=== PATIENT | female | born 1935 | race Caucasian/White ===

== ENCOUNTER → 2017-11-15 | Outpatient (CLI) | payer MEDICARE, BC | END | disposition home or self-care (01) | LOC: CFH 12:56 | PROVIDERS: ATTEND Specialist | DX: M81.0 Age-related osteoporosis without current pathological fracture (principal) | CPT/HCPCS: 77080 ==

== ENCOUNTER 2018-05-26 17:52 | Inpatient (IN) | payer MEDICARE, BC ==
[~2018-05-26] VITALS: Ht 167.6 cm; Wt 58.7 kg
[2018-05-26] MEDS ORDERED: [UNRECOGNIZED DRUG - REMARK] NAS (18:51)
[2018-05-26] MEDS ORDERED: COUMADIN (18:51)
[2018-05-26] MEDS ORDERED: DIGOXIN PO (18:51)
[2018-05-26] MEDS ORDERED: ASPI81TA45 PO (18:51)
[2018-05-26] MEDS ORDERED: [UNRECOGNIZED DRUG - REMARK] PO (18:51)
[2018-05-26] MEDS ORDERED: EFFEXOR PO (18:51)
[2018-05-26] MEDS ORDERED: BP MED? (18:51)
[2018-05-26] MEDS ORDERED: CARISOPRODOL PO (18:51)
[2018-05-26] MEDS ORDERED: MECLIZINE CHEWABLE 25 MG TAB PO ONE (19:00)
[2018-05-26] MEDS ORDERED: MECLIZINE CHEWABLE 25 MG TAB ONE (19:17)
[2018-05-26 19:18] LABS: BASOPHILS # (AUTO) 0.06 x10^3/uL (0-0.1); BASOPHILS % (AUTO) 1 % (0-1); EOSINOPHILS # (AUTO) 0.36 x10^3/uL (0-0.4); EOSINOPHILS % (AUTO) 4 % (1-7); LYMPHOCYTES # (AUTO) 1.84 x10^3/uL (1-3.4); LYMPHOCYTES % (AUTO) 20 % (22-44); MD NO; MEAN CORPUSCULAR HEMOGLOBIN 30.4 pg (27.0-34.8); MEAN CORPUSCULAR HGB CONC 33.8 g/dL (32.4-35.8); MEAN CORPUSCULAR VOLUME 89.9 fL (80-100); MEAN PLATELET VOLUME 8.2 fL (7.4-10.4); MONOCYTES # (AUTO) 0.73 x10^3/uL (0.2-0.8); MONOCYTES % (AUTO) 8 % (2-9); NEUTROPHILS # (AUTO) 6.15 x10^3/uL (1.8-6.8); NEUTROPHILS % (AUTO) 67 % (42-75); PLATELET COUNT 234 x10^3/uL (130-400); RED BLOOD COUNT 4.42 x10^6/uL (3.82-5.3); RED CELL DISTRIBUTION WIDTH 14.8 % (9.6-15.2)
[2018-05-26 19:28] LABS: INTERNATIONAL NORMALIZED RATIO 1.7 (0.93-1.1); PROTHROMBIN TIME 17.7 Seconds (9.6-11.5)
[2018-05-26 19:29] LABS: ALBUMIN 3.5 g/dL (3.4-5.0); ANION GAP 1 mmol/L (5-15); CHLORIDE 105 mmol/L (98-107)
[2018-05-26 19:34] LABS: ALANINE AMINOTRANSFERASE 26 U/L (12-78); ALKALINE PHOSPHATASE 96 U/L (45-117); BILIRUBIN,TOTAL 0.7 mg/dL (0.2-1.0); CREATININE 1.11 mg/dL (0.55-1.02); TOTAL PROTEIN 6.9 g/dL (6.4-8.2); TROPONIN I < 0.015 ng/mL (0.000-0.045)
[2018-05-26] MEDS ORDERED: BISACODYL 10 MG SUPP PR PRN (21:00)
[2018-05-26] MEDS ORDERED: DIAZEPAM 5 MG TABLET PO PRN (21:00)
[2018-05-26] MEDS ORDERED: MECLIZINE CHEWABLE 25 MG TAB PO PRN (21:00)
[2018-05-26] MEDS ORDERED: SODIUM CHLORIDE FLUSH 10ML SYR IVF PRN (21:00)
[2018-05-26] MEDS ORDERED: ONDANSETRON ODT 4 MG PO PRN (21:00)
[2018-05-26] MEDS ORDERED: hydrALAzine 20 MG/ML, 1ML IVPush PRN (21:00)
[2018-05-26] MEDS ORDERED: POLYETHYLENE GLYCOL 17 GM PACKET PO PRN (21:00)
[2018-05-26] MEDS: SODIUM CHLORIDE FLUSH 10ML SYR IVF SCH (21:45)
[2018-05-26 21:50] VITALS: BP 169/76
[2018-05-27] VITALS (7 sets, daily range): BP systolic 128–173; BP diastolic 67–95
[2018-05-27 05:43] LABS: BASOPHILS # (AUTO) 0.04 x10^3/uL (0-0.1); BASOPHILS % (AUTO) 1 % (0-1); EOSINOPHILS # (AUTO) 0.34 x10^3/uL (0-0.4); EOSINOPHILS % (AUTO) 4 % (1-7); LYMPHOCYTES # (AUTO) 2.37 x10^3/uL (1-3.4); LYMPHOCYTES % (AUTO) 27 % (22-44); MD NO; MEAN CORPUSCULAR HEMOGLOBIN 30.5 pg (27.0-34.8); MEAN CORPUSCULAR HGB CONC 34.2 g/dL (32.4-35.8); MEAN CORPUSCULAR VOLUME 89.2 fL (80-100); MEAN PLATELET VOLUME 8.7 fL (7.4-10.4); MONOCYTES # (AUTO) 0.75 x10^3/uL (0.2-0.8); MONOCYTES % (AUTO) 9 % (2-9); NEUTROPHILS # (AUTO) 5.38 x10^3/uL (1.8-6.8); NEUTROPHILS % (AUTO) 61 % (42-75); PLATELET COUNT 208 x10^3/uL (130-400); RED BLOOD COUNT 4.13 x10^6/uL (3.82-5.3); RED CELL DISTRIBUTION WIDTH 14.8 % (9.6-15.2)
[2018-05-27 05:53] LABS: ALBUMIN 3.4 g/dL (3.4-5.0); CALCIUM 8.1 mg/dL (8.5-10.1); CHLORIDE 105 mmol/L (98-107)
[2018-05-27 05:56] LABS: INTERNATIONAL NORMALIZED RATIO 1.63 (0.93-1.1)
[2018-05-27 05:58] LABS: ALANINE AMINOTRANSFERASE 23 U/L (12-78); ALKALINE PHOSPHATASE 93 U/L (45-117); ANION GAP 6 mmol/L (5-15); BILIRUBIN,TOTAL 0.6 mg/dL (0.2-1.0); CREATININE 0.97 mg/dL (0.55-1.02); TOTAL PROTEIN 6.3 g/dL (6.4-8.2)
[2018-05-27 07:37] LABS: MICROSCOPIC AUTO
[2018-05-27 07:40] LABS: CULTURE INDICATED? YES
[2018-05-27] MEDS: SENNA/DOCUSATE TABLET PO SCH (09:00)
[2018-05-27] MEDS ORDERED: SODIUM CHLORIDE 0.9% 1,000 ML IV SCH (09:30)
[2018-05-27] MEDS ORDERED: POTASSIUM CHLORIDE 20 MEQ TAB.ER.PRT PO ONE (09:30)
[2018-05-27] MEDS: SODIUM CHLORIDE FLUSH 10ML SYR IVF SCH ×2 (10:17→21:18)
[2018-05-27] MEDS: ASPIRIN 81 MG TABLET EC PO SCH (10:17)
[2018-05-27] MEDS ORDERED: TRAM50TA2 PO (14:00)
[2018-05-27] MEDS ORDERED: ASPI81TA59 PO (14:00)
[2018-05-27] MEDS ORDERED: TRIA50CA PO (14:00)
[2018-05-27] MEDS ORDERED: WARF4TAB PO (14:00)
[2018-05-27] MEDS ORDERED: OMEP40CA6 PO (14:00)
[2018-05-27] MEDS ORDERED: DIGO125T10 PO (14:00)
[2018-05-27] MEDS ORDERED: VENL37.57 PO (14:00)
[2018-05-27] MEDS ORDERED: ATOR40TA78 PO (14:00)
[2018-05-27] MEDS ORDERED: POTA20TA89 PO (14:00)
[2018-05-27] MEDS ORDERED: CARI350T14 PO (14:00)
[2018-05-27] MEDS ORDERED: TIZA2TAB PO (14:00)
[2018-05-27] MEDS: GABAPENTIN 100 MG CAPSULE PO SCH (21:17)
[2018-05-27] MEDS: DIPHENHYDRAMINE 50 MG/ML, 1ML IVPush PRN (21:18)
[2018-05-28] VITALS (9 sets, daily range): BP systolic 130–187; BP diastolic 67–95
[2018-05-28] MEDS: SODIUM CHLORIDE 0.9% 1,000 ML IV SCH ×2 (01:00→10:30)
[2018-05-28] MEDS: GABAPENTIN 100 MG CAPSULE PO SCH ×4 (06:09→21:45)
[2018-05-28] MEDS: SENNA/DOCUSATE TABLET PO SCH (09:00)
[2018-05-28] MEDS: SODIUM CHLORIDE FLUSH 10ML SYR IVF SCH ×2 (09:00→21:45)
[2018-05-28] MEDS ORDERED: SODIUM CHLORIDE 0.9% 1,000 ML IV SCH (09:30)
[2018-05-28 09:40] LABS: ANION GAP 8 mmol/L (5-15); CALCIUM 8.3 mg/dL (8.5-10.1); CHLORIDE 111 mmol/L (98-107); CREATININE 0.96 mg/dL (0.55-1.02)
[2018-05-28] MEDS: ASPIRIN 81 MG TABLET EC PO SCH (10:30)
[2018-05-28] MEDS ORDERED: POTASSIUM CHLORIDE 20 MEQ TAB.ER.PRT PO ONE (13:30)
[2018-05-28] MEDS ORDERED: METHOCARBAMOL 500 MG TABLET PO PRN (19:30)
[2018-05-28] MEDS ORDERED: WARFARIN 5 MG TABLET PO-COUM ONE (20:00)
[2018-05-28] MEDS: VENLAFAXINE 37.5MG TABLET PO SCH (21:44)
[2018-05-28] MEDS: ATORVASTATIN 40 MG TABLET PO SCH (21:44)
[2018-05-28] MEDS: OMEPRAZOLE 20 MG CAPSULE.DR PO SCH (21:45)
[2018-05-28] MEDS: DIPHENHYDRAMINE 50 MG/ML, 1ML IVPush PRN (21:46)
[2018-05-29 02:58] VITALS: BP 135/71
[2018-05-29 03:37] VITALS: BP 143/73
[2018-05-29 03:40] VITALS: BP 151/71
[2018-05-29] MEDS: GABAPENTIN 100 MG CAPSULE PO SCH ×4 (05:39→22:19)
[2018-05-29 06:23] LABS: INTERNATIONAL NORMALIZED RATIO 1.17 (0.93-1.1); PROTHROMBIN TIME 12.3 Seconds (9.6-11.5)
[2018-05-29 07:29] VITALS: BP 161/69
[2018-05-29] MEDS ORDERED: ASPIRIN 81 MG PO SCH (09:00)
[2018-05-29] MEDS: SODIUM CHLORIDE FLUSH 10ML SYR IVF SCH ×2 (09:00→22:19)
[2018-05-29] MEDS: VENLAFAXINE 37.5MG TABLET PO SCH ×2 (09:41→22:19)
[2018-05-29] MEDS: ASPIRIN 81 MG TABLET EC PO SCH (09:41)
[2018-05-29] MEDS: OMEPRAZOLE 20 MG CAPSULE.DR PO SCH ×2 (09:41→22:19)
[2018-05-29] MEDS: DIGOXIN 0.125 MG TABLET PO SCH (09:41)
[2018-05-29] MEDS: POTASSIUM CHLORIDE 20 MEQ TAB.ER.PRT PO SCH (09:41)
[2018-05-29] MEDS: SENNA/DOCUSATE TABLET PO SCH (09:41)
[2018-05-29] MEDS ORDERED: GABA-826 PO ×2 (10:51)
[2018-05-29] MEDS ORDERED: METH500T7 PO ×2 (10:55)
[2018-05-29] MEDS ORDERED: METHOCARBAMOL 500 MG TABLET PO PRN (11:30)
[2018-05-29 13:12] VITALS: BP 116/72
[2018-05-29] MEDS ORDERED: SODIUM CHLORIDE 0.9%, 250ML IVBOLUS ONE (13:30)
[2018-05-29] MEDS ORDERED: WARFARIN 7.5 MG TABLET PO-COUM ONE (18:00)
[2018-05-29 20:13] VITALS: BP 167/78
[2018-05-29] MEDS: ATORVASTATIN 40 MG TABLET PO SCH (22:19)
[2018-05-29] MEDS: DIPHENHYDRAMINE 50 MG/ML, 1ML IVPush PRN (22:19)
[2018-05-29] MEDS: ACETAMINOPHEN 325 MG TABLET PO PRN (22:19)
[2018-05-30 00:50] VITALS: BP 146/73
[2018-05-30] MEDS: GABAPENTIN 100 MG CAPSULE PO SCH ×2 (06:18→10:45)
[2018-05-30 06:34] LABS: INTERNATIONAL NORMALIZED RATIO 1.41 (0.93-1.1); PROTHROMBIN TIME 14.8 Seconds (9.6-11.5)
[2018-05-30 06:57] LABS: MEAN CORPUSCULAR HEMOGLOBIN 30.2 pg (27.0-34.8); MEAN CORPUSCULAR HGB CONC 33.7 g/dL (32.4-35.8); MEAN CORPUSCULAR VOLUME 89.5 fL (80-100); MEAN PLATELET VOLUME 8.7 fL (7.4-10.4); PLATELET COUNT 234 x10^3/uL (130-400); RED BLOOD COUNT 4.47 x10^6/uL (3.82-5.3)
[2018-05-30 07:06] LABS: ANION GAP 9 mmol/L (5-15); CALCIUM 7.8 mg/dL (8.5-10.1); CHLORIDE 108 mmol/L (98-107)
[2018-05-30 07:13] LABS: BASOPHILS % (AUTO) 0 % (0-1); EOSINOPHILS # (AUTO) 0.05 x10^3/uL (0-0.4); EOSINOPHILS % (AUTO) 0 % (1-7); LYMPHOCYTES # (AUTO) 1.27 x10^3/uL (1-3.4); LYMPHOCYTES % (AUTO) 8 % (22-44); MD SCAN; MONOCYTES % (AUTO) 6 % (2-9); NEUTROPHILS # (AUTO) 13.71 x10^3/uL (1.8-6.8); NEUTROPHILS % (AUTO) 86 % (42-75)
[2018-05-30 08:03] VITALS: BP 150/73
[2018-05-30] MEDS: ASPIRIN 81 MG TABLET EC PO SCH (08:47)
[2018-05-30] MEDS: OMEPRAZOLE 20 MG CAPSULE.DR PO SCH ×2 (08:47→21:07)
[2018-05-30] MEDS: POTASSIUM CHLORIDE 20 MEQ TAB.ER.PRT PO SCH (08:47)
[2018-05-30] MEDS: VENLAFAXINE 37.5MG TABLET PO SCH ×2 (08:48→21:07)
[2018-05-30] MEDS: SENNA/DOCUSATE TABLET PO SCH (08:48)
[2018-05-30] MEDS: DIGOXIN 0.125 MG TABLET PO SCH (08:48)
[2018-05-30] MEDS: SODIUM CHLORIDE FLUSH 10ML SYR IVF SCH ×2 (08:48→21:06)
[2018-05-30 09:05] LABS: MICROSCOPIC AUTO
[2018-05-30] MEDS: ACETAMINOPHEN 325 MG TABLET PO PRN ×2 (10:41→21:15)
[2018-05-30] MEDS ORDERED: SODIUM CHLORIDE 0.9%, 500ML IVBOLUS ONE (12:30)
[2018-05-30 13:30] VITALS: BP 117/65
[2018-05-30] MEDS ORDERED: WARFARIN 7.5 MG TABLET PO-COUM ONE (18:00)
[2018-05-30 19:43] VITALS: BP 148/71
[2018-05-30] MEDS: ATORVASTATIN 40 MG TABLET PO SCH (21:07)
[2018-05-31 01:02] VITALS: BP 147/77
[2018-05-31] MEDS: ACETAMINOPHEN 325 MG TABLET PO PRN ×2 (04:43→12:17)
[2018-05-31 05:54] LABS: INTERNATIONAL NORMALIZED RATIO 1.74 (0.93-1.1); PROTHROMBIN TIME 18.1 Seconds (9.6-11.5)
[2018-05-31 07:18] LABS: BASOPHILS # (AUTO) 0.04 x10^3/uL (0-0.1); BASOPHILS % (AUTO) 0 % (0-1); EOSINOPHILS # (AUTO) 0.15 x10^3/uL (0-0.4); EOSINOPHILS % (AUTO) 1 % (1-7); LYMPHOCYTES # (AUTO) 1.77 x10^3/uL (1-3.4); LYMPHOCYTES % (AUTO) 14 % (22-44); MD NO; MEAN CORPUSCULAR HGB CONC 33.2 g/dL (32.4-35.8); MEAN CORPUSCULAR VOLUME 90.3 fL (80-100); MONOCYTES % (AUTO) 7 % (2-9); NEUTROPHILS # (AUTO) 10.25 x10^3/uL (1.8-6.8); NEUTROPHILS % (AUTO) 78 % (42-75); PLATELET COUNT 211 x10^3/uL (130-400); RED BLOOD COUNT 4.17 x10^6/uL (3.82-5.3); RED CELL DISTRIBUTION WIDTH 14.8 % (9.6-15.2)
[2018-05-31 07:37] LABS: ANION GAP 11 mmol/L (5-15); CHLORIDE 107 mmol/L (98-107); CREATININE 0.89 mg/dL (0.55-1.02)
[2018-05-31 07:48] VITALS: BP 125/72
[2018-05-31] MEDS: SENNA/DOCUSATE TABLET PO SCH (09:08)
[2018-05-31] MEDS: OMEPRAZOLE 20 MG CAPSULE.DR PO SCH (09:08)
[2018-05-31] MEDS: POTASSIUM CHLORIDE 20 MEQ TAB.ER.PRT PO SCH (09:08)
[2018-05-31] MEDS: ASPIRIN 81 MG TABLET EC PO SCH (09:08)
[2018-05-31] MEDS: DIGOXIN 0.125 MG TABLET PO SCH (09:08)
[2018-05-31] MEDS: VENLAFAXINE 37.5MG TABLET PO SCH (09:08)
[2018-05-31 14:20] VITALS: BP 132/64
[2018-05-31] MEDS ORDERED: WARFARIN 3 MG TABLET PO-COUM SCH (18:00)
== END 2018-05-31 16:49 | DRG 74 ==
LOC: ED 19:45 → EDIP 21:01 → 4NOR 21:45 → 4EST 05-27 18:41
PROVIDERS: ADMIT Internal Medicine; ATTEND Internal Medicine
PROC: 4B02XSZ Measurement of Cardiac Pacemaker, External Approach (ICD-10-PCS; 2018-05-28)
PROC: 0T9B70Z Drainage of Bladder with Drainage Device, Via Natural or Artificial Opening (ICD-10-PCS; principal; 2018-05-30)
DX: G90.8 Other disorders of autonomic nervous system (principal); D68.69 Other thrombophilia; S70.02XA Contusion of left hip, initial encounter; I48.2 Chronic atrial fibrillation; W01.0XXA Fall on same level from slipping, tripping and stumbling without subsequent striking against object, initial encounter; Y93.89 Activity, other specified; Y92.89 Other specified places as the place of occurrence of the external cause; Y99.8 Other external cause status; D72.829 Elevated white blood cell count, unspecified; G47.30 Sleep apnea, unspecified; G62.9 Polyneuropathy, unspecified; I07.1 Rheumatic tricuspid insufficiency; Z82.3 Family history of stroke; Z95.0 Presence of cardiac pacemaker; I35.8 Other nonrheumatic aortic valve disorders; Z85.43 Personal history of malignant neoplasm of ovary; Z79.01 Long term (current) use of anticoagulants; Z79.82 Long term (current) use of aspirin; Z86.73 Personal history of transient ischemic attack (TIA), and cerebral infarction without residual deficits; Z95.2 Presence of prosthetic heart valve; Z90.710 Acquired absence of both cervix and uterus; Z79.899 Other long term (current) drug therapy
CPT/HCPCS: 36415; 70450; 71045; 80048; 80053; 80162; 81001; 82962; 83605; 84145; 84484; 85025; 85610; 85730; 87086; 93005; 93306; 93880; 99285; G0378; J1200; J7030; J7040; J7050

== ENCOUNTER → 2018-07-13 | Outpatient (CLI) | payer MEDICARE, BC ==
[~2018-07-13] MED LIST: ASPI81TA45 PO; ASPI81TA59 PO; ATOR40TA78 PO; BP MED?; CARI350T14 PO; CARISOPRODOL PO; COUMADIN; DIGO125T10 PO; DIGOXIN PO; EFFEXOR PO; GABA-826 PO; METH500T7 PO; OMEP40CA6 PO; POTA20TA89 PO; TIZA2TAB PO; TRAM50TA2 PO; TRIA50CA PO; VENL37.57 PO; WARF4TAB PO; [UNRECOGNIZED DRUG - REMARK] NAS; [UNRECOGNIZED DRUG - REMARK] PO
== END | disposition home or self-care (01) ==
LOC: CVU 14:26
PROVIDERS: ATTEND Internal Medicine
DX: I77.9 Disorder of arteries and arterioles, unspecified (principal); I70.202 Unspecified atherosclerosis of native arteries of extremities, left leg; I70.291 Other atherosclerosis of native arteries of extremities, right leg; I10 Essential (primary) hypertension; I63.9 Cerebral infarction, unspecified; E11.9 Type 2 diabetes mellitus without complications
CPT/HCPCS: 93922; 93925